=== PATIENT | male | born 1985 ===

== ENCOUNTER 2017-11-03 02:28 | Emergency (ER) | payer SELFPAY ==
--- NOTE | 2017-11-03 02:30 | EDPHY ---
H & P Time Seen by Provider: 11/03/17 02:29 HPI/ROS: Chief Complaint: Finger laceration, medical clearance HPI: 32-year-old male being brought in for medical clearance for senior living. Patient sustained a laceration on his right index finger 3 days ago on a copper pipe. His glued it 2 days ago. He denies any redness, discharge, no fevers or chills, no other injuries. ROS: 10 point Review of Systems is negative except as noted in the HPI. PMH: Denies Social History: No smoking, no alcohol, no recreational drug use Family History: non-contributory Physical Exam: Gen: Awake, Alert, No Distress HEENT: Nose: no rhinorrhea Eyes: PERRLA, EOMI Mouth: Moist mucosa Neck: Supple, no JVD Chest: nontender, lungs clear to auscultation Heart: S1, S2 normal, no murmur Abd: Soft, non-tender, no guarding Back: no CVA tenderness, no midline tenderness Ext: Right index finger. Patient has a curved laceration on the pad of the distal phalanx of his right index finger. It is closed. Is healing well. There is no erythema. There is no discharge. Sensations intact. Skin: no rash Neuro: CN II-XII intact, Sensation grossly intact, Strength 5/5 in bilateral upper and lower extremities Allergies/Adverse Reactions: No Known Allergies Allergy (Unverified 11/03/17 02:30) Home Medications: Medication Instructions Recorded NK [No Known Home Meds] 11/03/17 Medical Decision Making ED Course/Re-evaluation: Patient has a healing laceration on his index finger. It is 3-day-old. It is healing well. There are no signs of infections or dehiscence. Has been cleaned and bandaged here. He is discharged. Medically clear for senior living. Departure - Departure Disposition: Home, Routine, Self-Care Clinical Impression: Finger laceration Condition: Good Instructions: Laceration Without Closure (ED) Additional Instructions: Keep the laceration clean and dry MEDICALLY CLEAR FOR PRISON
[2017-11-03 02:37] VITALS: BP 124/76
== END 2017-11-03 02:36 | disposition home or self-care (01) ==
LOC: EEVIPCON 02:28
DX: S61.210A Laceration without foreign body of right index finger without damage to nail, initial encounter (principal); W45.8XXA Other foreign body or object entering through skin, initial encounter